=== PATIENT | female | born 1975 | race Caucasian/White ===

== ENCOUNTER 2020-10-12 08:15 | Day surgery (SDC) | payer OTHER ==
[~2020-10-12] VITALS: Ht 162.6 cm; Wt 103.9 kg
[2020-10-12] MEDS ORDERED: LIDOCAINE 2% 100 MG/5 ML UJET TP ONE (11:47)
[2020-10-12] MEDS ORDERED: fentaNYL citrate 0.05 MG/ML VIAL ONE (11:47)
[2020-10-12] MEDS ORDERED: fentaNYL citrate 0.05 MG/ML VIAL IVP ONE (13:40)
== END 2020-10-12 12:50 | disposition home or self-care (01) ==
LOC: MDS 08:15 → MMU 08:18 → MDS 12:50
PROVIDERS: ATTEND Internal Medicine Gastroenterology
DX: K62.5 Hemorrhage of anus and rectum (principal); K57.30 Diverticulosis of large intestine without perforation or abscess without bleeding; R79.0 Abnormal level of blood mineral; Z80.0 Family history of malignant neoplasm of digestive organs; Z87.891 Personal history of nicotine dependence; Z88.1 Allergy status to other antibiotic agents; Z88.2 Allergy status to sulfonamides; Z88.8 Allergy status to other drugs, medicaments and biological substances; Z79.899 Other long term (current) drug therapy
CPT/HCPCS: 45378; 81025; J3010

== ENCOUNTER 2021-07-07 10:13 | Emergency (ER) | payer OTHER ==
[~2021-07-07] VITALS: Ht 193 cm; Wt 107.0 kg
[2021-07-07 10:18] VITALS: BP 168/113
--- NOTE | 2021-07-07 10:22 | NUR ---
PT AMBULATED TO ER BED 12 WITH A STEADY GAIT.
--- NOTE | 2021-07-07 10:29 | NUR ---
DR. AKNG AT PT BEDSIDE FOR FURTHER EVALUATION.
--- NOTE | 2021-07-07 10:43 | NUR ---
46 Y/O FEMALE C/O CHEST PAIN 04/01 DESCRIBES TIGHTNESS RADIATES TO LEFT ARM AND LEFT SIDE OF NECK. PT STATES SHE TOOK IBUPROFEN WITH NO RELIEF. DENIES FEVER/CHILLS. DENIES N/V/D. PMH: MS, HTN, "TRIGGER PAIN", RA ALLERGIES: CLINDAMYCIN, FLUCANAZOLE, AND SULFA
--- NOTE | 2021-07-07 10:51 | NUR ---
COOKER PROCESS CHEESE AT PT BEDSIDE.
--- NOTE | 2021-07-07 10:52 | NUR ---
IV ESTABLISHED TO LEFT AC 18G, GOOD BLOOD RETURN, BLOOD COLLECTED GIVEN TO STOCK OR DELIVERY CLERK AT PT BEDSIDE.
[2021-07-07 11:19] LABS: BASOPHILS % (AUTO) 0.4 % (0.0-2.0); EOSINOPHILS # (AUTO) 0.1 K/uL (0-0.4); EOSINOPHILS % (AUTO) 1.3 % (0.0-4.0); HEMATOCRIT 40.4 % (36-48); HEMOGLOBIN 13.7 g/dL (12.0-16.0); LYMPHOCYTES % (AUTO) 26.7 % (20.5-51.1); MEAN CORPUSCULAR HEMOGLOBIN 30 pg (27-31); MEAN CORPUSCULAR HGB CONC 34 g/dL (33-37); MEAN CORPUSCULAR VOLUME 88.8 fL (80-94); MONOCYTES # (AUTO) 0.4 K/uL (0.8-1.0); MONOCYTES % (AUTO) 5.9 % (1.7-9.3); NEUTROPHILS # (AUTO) 4.9 K/uL (1.8-7.7); NEUTROPHILS % (AUTO) 65.7 % (42.2-75.2); PLATELET COUNT (AUTO) 232 K/uL (140-450); RED BLOOD CELL COUNT(AUTO) 4.55 MIL/uL (4.20-5.40); RED CELL DISTRIBUTION WIDTH 14.3 % (11.6-13.7); WHITE BLOOD COUNT (AUTO) 7.5 K/uL (4.8-10.8)
--- NOTE | 2021-07-07 11:42 | NUR ---
CAM SPECIALIST AT PT BEDSIDE FOR BLOOD REDRAW FOR CHEM.
--- NOTE | 2021-07-07 12:15 | NUR ---
PT RESTING IN BED, VSS, WILL CONTINUE TO MONITOR.
[2021-07-07 12:21] LABS: ALBUMIN 3.5 g/dL (3.4-5.0); ANION GAP 10.2 (8-16); CARBON DIOXIDE 26.9 mmol/L (21-32); CREATININE 0.7 mg/dL (0.6-1.3); POTASSIUM 4.1 mmol/L (3.5-5.1); TOTAL BILIRUBIN 0.4 mg/dL (0.0-1.0)
[2021-07-07] MEDS ORDERED: CYCLOBENZAPRINE 10 MG TAB PO ONE (12:35)
[2021-07-07] MEDS ORDERED: KETOROLAC 30 MG/ML VIAL IM ONE (12:35)
[2021-07-07] MEDS ORDERED: ACETAMINOPHEN EXTRA STRENGTH 500 MG TAB PO ONE (12:35)
[2021-07-07] MEDS ORDERED: IBUP-2213 PO (13:46)
[2021-07-07] MEDS ORDERED: LID5T TP (13:46)
--- NOTE | 2021-07-07 14:05 | NUR ---
PT RESTING IN BED, VSS, WILL CONTINUE TO MONITOR.
[2021-07-07] MEDS ORDERED: CYCL-711 PO (14:41)
[2021-07-07 14:57] VITALS: BP 131/82
--- NOTE | 2021-07-07 14:58 | NUR ---
Patient discharged with v/s stable. Written and verbal after care instructions given FOR NONSPECIFIC CHEST PAIN AND THROACIC STRAIN REHAB and explained. Patient alert, oriented and verbalized understanding of instructions. Ambulatory with steady gait. All questions addressed prior to discharge. ID band removed. Patient advised to follow up with PMD. Rx of FLEXERIL, IBUPROFEN, AND LIDOCAINE PATCH given. Patient educated on indication of medication including possible reaction and side effects. Opportunity to ask questions provided and answered.
== END 2021-07-07 14:58 | disposition home or self-care (01) ==
LOC: MED 10:13
DX: T14.8XXA Other injury of unspecified body region, initial encounter (principal); M54.6 Pain in thoracic spine; R07.9 Chest pain, unspecified; I10 Essential (primary) hypertension; Z79.899 Other long term (current) drug therapy; Z88.1 Allergy status to other antibiotic agents; Z88.8 Allergy status to other drugs, medicaments and biological substances; X58.XXXA Exposure to other specified factors, initial encounter; Y93.89 Activity, other specified; Y92.89 Other specified places as the place of occurrence of the external cause; Y99.8 Other external cause status
CPT/HCPCS: 36415; 71045; 80053; 82550; 83880; 84484; 85025; 85379; 93005; 96372; 99285; J1885; Q0092